=== PATIENT | female | born 1945 | race Caucasian/White ===

== ENCOUNTER → 2016-08-09 | Outpatient (CLI) | payer MEDICARE, BC | END | disposition home or self-care (01) | LOC: RAD 07:16 | PROVIDERS: ATTEND Internal Medicine | DX: K22.8 Other specified diseases of esophagus (principal) | CPT/HCPCS: 74241 ==

== ENCOUNTER → 2016-09-20 | Outpatient (CLI) | payer MEDICARE, BC | END | disposition home or self-care (01) | LOC: CFH 07:05 | PROVIDERS: ATTEND Specialist | DX: K21.9 Gastro-esophageal reflux disease without esophagitis (principal); R07.9 Chest pain, unspecified | CPT/HCPCS: 76700 ==